=== PATIENT | female | born 1980 | race Caucasian/White ===

== ENCOUNTER 2018-03-29 20:19 | Emergency (ER) | payer OTHER ==
[2018-03-29] MEDS ORDERED: 0.9 % SODIUM CHLORIDE 1,000 ML IV ONE ×2 (20:56→23:31)
[2018-03-29] MEDS ORDERED: ONDANSETRON HCL/PF 4 MG/ 2ML VIAL IVP ONE ×2 (21:47→23:31)
[2018-03-29 21:51] LABS: BASOPHILS % 0.4 (0.0-1.5); EOSINOPHILS % 1.9 % (0.0-6.8); MEAN CORPUSCULAR HEMOGLOBIN 19.6 pg (28.0-34.0); MONOCYTES % 6.9 % (0.0-11.0); NEUTROPHILS # 6.8 # k/uL (1.4-7.7)
[2018-03-29 22:06] LABS: eGFR (Non-African) > 60
[2018-03-29] MEDS ORDERED: PROMETHAZINE HCL 25 MG/ML VIAL IM ONE (23:30)
--- NOTE | 2018-03-29 23:39 | ED Physician Documentation ---
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 C/O dizziness when standing.) - Vaginal Bleeding Abnormal Bleeding Started: 03/29/18 Compared to Menstrual Periods: heavier LNMP (Last Known Menstrual Period): 03/19/18 : 1 Para: 1 Contraceptive: none - ROS CONST: none GI/: nausea. denies: vomiting, diarrhea CVS/RESP: none EYES/ENT: none NEURO/PSYCH: none MS/SKIN/LYMPH: none - PAST HX Past History: endometriosis Allergies/Adverse Reactions: Allergies Allergy/AdvReac Type Severity Reaction Status Date / Time No Known Allergies Allergy Unverified 03/29/18 21:48 Home Medications: Ambulatory Orders Medication Instructions Recorded NK 03/29/18 - SOCIAL HX Smoking History: non-smoker - FAMILY HX Family History: denies: none - VITAL SIGNS Vital Signs: Vital Signs Temp Pulse Resp BP Pulse Ox 98.6 F 93 H 18 124/69 100 03/29/18 20:20 03/29/18 20:20 03/29/18 20:20 03/29/18 20:20 03/29/18 20:20 - REVIEWED ASSESSMENTS Nursing Assessment Reviewed: Yes Vitals Reviewed: Yes Progress - Consult/PCP Time Called: 23:35 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 Reason/Comments: Patient accepted by Dr Doshi ED Results Lab/Radiology - Lab Results Lab Results: Lab Results 03/29/18 03/29/18 03/29/18 22:40 21:47 21:47 WBC 10.70 K/ul K/ul (4.00-12.00) RBC 3.83 M/ul L M/ul (3.90-5.20) Hgb 7.5 g/dL L g/dL (12.0-16.0) Hct 24.4 % L % (34.5-46.5) MCV 64.0 fl L fl (80.0-100.0) MCH 19.6 pg L pg (28.0-34.0) MCHC 30.8 g/dL g/dL (30.0-36.0) RDW 18.1 % H % (11.3-14.3) Plt Count 433 K/mm3 H K/mm3 (130-400) Neut % (Auto) 63.0 % % (39.0-79.0) Lymph % (Auto) 27.8 % % (16.0-50.0) [place] % (Auto) 6.9 % % (0.0-11.0) Eos % (Auto) 1.9 % % (0.0-6.8) Baso % (Auto) 0.4 (0.0-1.5) Neut # (Auto) 6.8 # k/uL # k/uL (1.4-7.7) Lymph # (Auto) 3.0 # k/uL # k/uL (0.6-4.0) [place] # (Auto) 0.7 # k/uL # k/uL (0.0-0.9) Eos # (Auto) 0.2 # k/uL # k/uL (0.0-0.6) Baso # (Auto) 0.0 # k/uL # k/uL (0.0-0.5) Sodium 138 mmol/L mmol/L (136-145) Potassium 3.9 mmol/L mmol/L (3.5-5.1) Chloride 104 mmol/L mmol/L (98-107) Carbon Dioxide 22 mmol/L mmol/L (22-30) BUN 15 mg/dL mg/dL (7-17) Creatinine 0.70 mg/dL mg/dL (0.52-1.04) Estimated Creat Clear 190 Est GFR ( Amer) > 60 (60 - ) Est GFR (Non-Af Amer) > 60 (60 - ) Glucose 99 mg/dL mg/dL (74-106) Calcium 8.1 mg/dL L mg/dL (8.4-10.2) Total Bilirubin 0.4 mg/dL mg/dL (0.2-1.3) AST 39 U/L U/L (15-46) ALT 39 U/L U/L (13-69) Alkaline Phosphatase 43 U/L U/L (38-126) Total Protein 7.0 g/dL g/dL (6.3-8.2) Albumin 3.8 g/dL g/dL (3.5-5.0) Serum HCG, Qual Negative (NEGATIVE) - Orders Orders: ED Orders Category Date Time Status Place IV Lock 1T Care 03/29/18 20:56 Active CBC/PLATELET/DIFF Stat Lab 03/29/18 21:47 Completed CMP Stat Lab 03/29/18 21:47 Completed PT-INR Stat Lab 03/29/18 23:01 Received PTT Stat Lab 03/29/18 23:01 Received SERUM HCG Stat Lab 03/29/18 22:40 Completed 0.9 % Sodium Chloride [Normal Saline] 1,000 ml Med 03/29/18 20:56 Discontinued IV NOW 0.9 % Sodium Chloride [Normal Saline] 1,000 ml Med 03/29/18 23:31 Ordered IV NOW Ondansetron HCl/Pf [Zofran 4 mg/2 ml] Med 03/29/18 21:47 Discontinued 4 mg IVP NOW ONE Ondansetron HCl/Pf [Zofran 4 mg/2 ml] Med 03/29/18 23:31 Once 4 mg IVP NOW ONE Promethazine HCl [Phenergan] Med 03/29/18 23:30 Stop Req 25 mg IM NOW ONE Female Urogenital Problems - EXAM General Appearance: anxious EENT: eye inspection normal, EMY Respiratory: no resp. distress, breath sounds nml CVS: reg rate & rhythm, heart sounds normal, equal pulses, no murmur, no gallop, PMI nml, no JVD, no friction rub, 24 Abdomen: soft, non-tender, no organomegaly, no distention, nml bowel sounds Pelvic: external exam nml, active bleeding, blood in vaginal vault, blood clots in vault. No: speculum exam nml, herpes-like ulcerations, vaginal discharge, cerv.motion tenderness, cervical dilation Skin: color nml, no rash, warm,dry Extremities: non-tender, normal range of motion, no evidence of injury, no edema, J, PASSENGER AGENT Neuro: oriented X3, CN's nml as tested, motor nml, sensation nml, mood/affect nml Discharge Clincal Impression: Menorrhagia Qualifiers: Menorrahagia type: with onset of menstrual periods Qualified Code(s): N92.2 - Excessive menstruation at puberty Referrals: Tana Hurst PRN [Primary Care Provider] - 2 Days Condition: Stable Disposition: 02 XFER SHT-TRM HOSP Decision to Admit: NO Decision Time: 23:43
[2018-03-30 01:19] VITALS: BP 132/75
== END 2018-03-29 23:55 | disposition short-term general hospital (02) ==
LOC: ED 20:19
DX: N92.4 Excessive bleeding in the premenopausal period (principal)
CPT/HCPCS: 80053; 84703; 85025; 85610; 85730; J2405; J7030; 96365; 96375; 96376; S1016